=== PATIENT | male | born 1970 | race Caucasian/White ===

== ENCOUNTER → 2018-05-29 18:16 | Outpatient (REF) | payer MEDICAID, SELFPAY ==
[2018-05-29 21:42] LABS: ALT 119 U/L (12-78); AST 64 U/L (15-37); Albumin 3.7 g/dL (3.4-5.0); Alkaline Phosphatase 97 U/L (46-116); Anion Gap 8.4 mmol/L (3-11); BUN 14 mg/dL (7-18); Bilirubin, Total 0.5 mg/dL (0.2-1.0); CO2 29.6 mmol/L (21.0-32.0); CREATININE 0.76 mg/dL (0.70-1.30); Calcium 8.8 mg/dL (8.5-10.1); Chloride 103 mmol/L (98-107); Cholesterol 226 mg/dL (50-200); Glucose 109 mg/dL (70-100); HDL Cholesterol 29 mg/dL (40-60); LDL CHOLESTEROL 124 mg/dL (<100); Potassium 4.2 mmol/L (3.5-5.1); Sodium 141 mmol/L (136-145); Total Protein 7.7 g/dL (6.4-8.2); Triglyceride 674 mg/dL (30-150)
== END ==
LOC: NCHCN 18:16
PROVIDERS: PCP Family Medicine; Visit Provider Family Medicine
DX: I10 Essential (primary) hypertension (principal)
CPT/HCPCS: 80053; 80061; 83721

== ENCOUNTER 2018-07-30 17:26 | Outpatient (REF) | payer MEDICAID, SELFPAY ==
[2018-07-30 22:06] LABS: ALT 109 U/L (12-78); AST 68 U/L (15-37); Albumin 3.8 g/dL (3.4-5.0); Alkaline Phosphatase 93 U/L (46-116); Bilirubin, Total 0.4 mg/dL (0.2-1.0); Cholesterol 224 mg/dL (50-200); HDL Cholesterol 25 mg/dL (40-60); LDL CHOLESTEROL 111 mg/dL (<100); Total Protein 7.4 g/dL (6.4-8.2); Triglyceride 523 mg/dL (30-150)
[2018-07-30 22:40] LABS: Bilirubin, Direct 0.14 mg/dL (0.00-0.20)
== END 2018-07-30 17:46 ==
LOC: NCHCN 17:26
PROVIDERS: PCP Family Medicine; Visit Provider Family Medicine
DX: M25.562 Pain in left knee (principal); R79.89 Other specified abnormal findings of blood chemistry; E78.1 Pure hyperglyceridemia
CPT/HCPCS: 80061; 80076; 83721

== ENCOUNTER 2019-02-21 16:49 | Outpatient (REF) | payer MEDICAID, SELFPAY ==
[2019-02-21 21:20] LABS: HCT 50.6 % (40.0-50.0); HGB 16.9 g/dL (13.5-17.5); Mean Corp. HGB Concentration 33.4 g/dL (32.0-36.0); Mean Corpuscular Hemoglobin 32.1 pg (27.0-33.0); Mean Corpuscular Volume 96.2 fL (80-95); Mean Platelet Volume 10.4 fL (8.0-11.0); Platelet Count 186 x1000/uL (130-400); RBC 5.26 m/cumm (4.50-6.00); RBC Distribution Width 12.5 % (11.8-14.1); White Blood Cell Count 7.75 k/cumm (4.4-10.8)
[2019-02-21 21:39] LABS: Hemoglobin A1C 5.6 % (4.5-6.2)
[2019-02-21 21:43] LABS: ALT 102 U/L (12-78); AST 43 U/L (15-37); Albumin 3.9 g/dL (3.4-5.0); Alkaline Phosphatase 79 U/L (46-116); Anion Gap 5.3 mmol/L (3-11); BUN 16 mg/dL (7-18); Bilirubin, Total 0.6 mg/dL (0.2-1.0); CO2 31.7 mmol/L (21.0-32.0); CREATININE 0.76 mg/dL (0.70-1.30); Calcium 9.4 mg/dL (8.5-10.1); Chloride 101 mmol/L (98-107); Cholesterol 184 mg/dL (50-200); Glucose 98 mg/dL (70-100); HDL Cholesterol 42 mg/dL (40-60); LDL CHOLESTEROL 117 mg/dL (<100); Potassium 5.3 mmol/L (3.5-5.1); Sodium 138 mmol/L (136-145); Total Protein 7.4 g/dL (6.4-8.2); Triglyceride 144 mg/dL (30-150)
[2019-02-21 21:51] LABS: Lipase 138 U/L (73-393)
== END 2019-02-21 17:09 ==
LOC: NCHCN 16:49
PROVIDERS: PCP Family Medicine; Visit Provider Family Medicine
DX: E78.1 Pure hyperglyceridemia (principal); R79.89 Other specified abnormal findings of blood chemistry; Z87.19 Personal history of other diseases of the digestive system
CPT/HCPCS: 80053; 80061; 83690; 83721; 85027; 83036

== ENCOUNTER 2019-06-02 08:54 | Outpatient (REF) | payer MEDICAID, SELFPAY ==
[2019-06-02 22:25] LABS: ALT 89 U/L (12-78); AST 43 U/L (15-37); Albumin 3.8 g/dL (3.4-5.0); Alkaline Phosphatase 82 U/L (46-116); Anion Gap 5.7 mmol/L (3-11); BUN 18 mg/dL (7-18); Bilirubin, Total 0.4 mg/dL (0.2-1.0); CO2 32.3 mmol/L (21.0-32.0); CREATININE 0.75 mg/dL (0.70-1.30); Calcium 8.4 mg/dL (8.5-10.1); Calculated LDL 138 mg/dL; Chloride 102 mmol/L (98-107); Cholesterol 225 mg/dL (50-200); Glucose 119 mg/dL (70-100); HDL Cholesterol 40 mg/dL (40-60); Potassium 4.7 mmol/L (3.5-5.1); Sodium 140 mmol/L (136-145); Total Protein 6.9 g/dL (6.4-8.2); Triglyceride 235 mg/dL (30-150)
== END 2019-06-02 09:14 ==
LOC: NCHCN 08:54
PROVIDERS: PCP Family Medicine; Visit Provider Family Medicine
DX: E78.1 Pure hyperglyceridemia (principal); I10 Essential (primary) hypertension; R79.89 Other specified abnormal findings of blood chemistry
CPT/HCPCS: 80053; 80061; 83721